=== PATIENT | male | born 1995 | race Caucasian/White ===

== ENCOUNTER 2017-06-09 08:06 | Emergency (ER) | payer MEDICAID, OTHER ==
[2017-06-09 08:20] VITALS: BP 140/69
[2017-06-09 08:34] LABS: MUDS CUTOFF CONCENTRATIONS CUTOFF CONC BELOW:
[2017-06-09 08:45] LABS: BILIRUBIN,URINE NEGATIVE (NEGATIVE); GLUCOSE, URINE (UA) NEGATIVE (NEGATIVE); KETONES,URINE (UA) NEGATIVE (NEGATIVE); LEUKOCYTE ESTERASE, URINE NEGATIVE (NEGATIVE); NITRITE,URINE NEGATIVE (NEGATIVE); OCCULT BLOOD,URINE NEGATIVE (NEGATIVE); PROTEIN,URINE NEGATIVE (NEGATIVE); UROBILINOGEN,URINE 0.2 (NORMAL) E.U./dL (NORMAL)
--- NOTE | 2017-06-09 08:45 | ED Physician Documentation ---
History of Present Illness - Stated complaint Stated Complaint: MHE - Chief complaint Chief Complaint: MHE - Additonal information Additional information: hx from pt 22 male long hx of depression and anxiety hx admission to [place] (which he did not think was helpful) recently quit his job in [employer] and moved to a new job on [employer] and is staying with his grandpa to ER today with his father and GF who are supportive CC depression and suicidal thought no suicidal plan has not yet harmed himself no homicidal ideations does have auditory (distant voices and work noises not commands) and visual ( people at the periph of his vision) hallucinations no fever cough NVD has had congestion has a local PMD, takes adderall Review of Systems Constitutional: denies: Fever, Chills Nose: reports: Congestion Respiratory: denies: Cough GI: denies: Vomiting, Diarrhea Psychiatric: reports: Depressed, Suicidal, Hallucinations, Anxiety. denies: Homicidal, Delusions PD PAST MEDICAL HISTORY - Past Medical History Psych: ADD/ADHD - Past Surgical History Past Surgical History: Yes - Present Medications Home Medications: Ambulatory Orders Medication Instructions Recorded Confirmed Dextroamphetamine/Amphetamine 20 mg PO TID 06/09/17 [Adderall 20 mg Tablet] - Allergies Allergies/Adverse Reactions: Allergies Allergy/AdvReac Type Severity Reaction Status Date / Time No Known Drug Allergies Allergy Verified 06/09/17 08:13 - Social History Does the pt smoke?: No Smoking Status: Never smoker Does the pt drink ETOH?: No Does the pt have substance abuse?: No - Immunizations Immunizations are current?: No - POLST Patient has POLST: No PD ED PE NORMAL - Vitals Vital signs reviewed: Yes - General General: Alert and oriented X 3 - HEENT HEENT: PERRL - Neck Neck: Supple, no meningeal sign - Cardiac Cardiac: RRR - Respiratory Respiratory: No respiratory distress, Clear bilaterally - Abdomen Abdomen: Soft, Non tender - Derm Derm: Normal color - Neuro Neuro: Alert and oriented X 3 Eye Opening: Spontaneous Motor: Obeys Commands Verbal: Oriented GCS Score: 15 - Psych Psych: Other (depressed anxious suicidal ideations s plan, no homicidal ideations, auditory and visual hallucinations, no delusions) Results - Vitals Vitals: Vital Signs - 24 hr 06/09/17 08:09 Temperature 37.1 C Heart Rate 96 Respiratory 18 Rate Blood Pressure 140/69 H O2 Saturation 98 Oxygen O2 Source Room air - Labs Labs: Laboratory Tests 06/09/17 06/09/17 06/09/17 08:25 08:39 08:39 WBC 5.3 RBC 5.05 Hgb 15.1 Hct 44.1 MCV 87.3 MCH 29.8 MCHC 34.2 RDW 12.6 Plt Count 203 MPV 8.5 Neut # 3.0 Lymph # 1.8 [place] # 0.4 Eos # 0.1 Baso # 0.0 Absolute Nucleated RBC 0.00 Nucleated RBC % 0.0 Sodium 140 Potassium 3.8 Chloride 104 Carbon Dioxide 28 Anion Gap 8.0 BUN 11 Creatinine 0.7 Estimated GFR (MDRD) 141 Glucose 89 Calcium 9.0 Total Bilirubin 0.5 AST 17 ALT 18 Alkaline Phosphatase 66 Total Protein 7.0 Albumin 4.4 Globulin 2.6 Albumin/Globulin Ratio 1.7 Lipase 18 L Urine Color YELLOW Urine Clarity CLEAR Urine pH 6.0 Ur Specific [place] 1.025 Urine Protein NEGATIVE Urine Glucose (UA) NEGATIVE Urine Ketones NEGATIVE Urine Occult Blood NEGATIVE Urine Nitrite NEGATIVE Urine Bilirubin NEGATIVE Urine Urobilinogen 0.2 (NORMAL) Ur Leukocyte Esterase NEGATIVE Ur Microscopic Review NOT INDICATED Urine Culture Comments NOT INDICATED Salicylates < 6.0 Urine Opiates Screen NEGATIVE Ur Oxycodone Screen NEGATIVE Urine Methadone Screen NEGATIVE Ur Propoxyphene Screen NEGATIVE Acetaminophen < 10 L Ur Barbiturates Screen NEGATIVE Ur Tricyclics Screen NEGATIVE Ur Phencyclidine Scrn NEGATIVE Ur Amphetamine Screen POSITIVE H U Methamphetamines Scrn NEGATIVE U Benzodiazepines Scrn NEGATIVE Urine Cocaine Screen NEGATIVE U Cannabinoids Screen POSITIVE H Ethyl Alcohol < 5.0 PD MEDICAL DECISION MAKING - ED course ED course: 805 pt arrived 825 pt seen by me 920 medically clear 910 SW consulted 1010 awaiting SW, pt updated 1030 SW to ER to [place] pt 1130 SW reports she feels pt safe for dc, has next day check scheduled as well as an urgent fup appt at Sunday and will be at home with responsible family members I went to speak to pt and he is comfortable with this plan Departure - Departure Disposition: 01 Home, Self Care Clinical Impression: Anxiety Depression Qualifiers: Depression Type: unspecified Qualified Code(s): F32.9 - Major depressive disorder, single episode, unspecified Condition: Good Instructions: ED Depression Follow-Up: [facility] [Provider Group] Comments: The certified social workers in health care has arranged for you to have a recheck by phone tomorrow at 10 AM as well as an urgent follow up appointment on Sunday Stay with a responsible family member Return to the ER if worse You can always call the crisis line as well which the certified social workers in health care gave you the number for Forms: Activity restrictions
[2017-06-09 08:50] LABS: CLARITY,URINE CLEAR (CLEAR)
[2017-06-09 08:52] LABS: BASOPHILS % (AUTO) 0.3 %; EOSINOPHILS # (AUTO) 0.1 10^3/uL (0.0-0.7); EOSINOPHILS % (AUTO) 2.7 %; HGB - HEMOGLOBIN 15.1 g/dL (14.0-18.0); LYMPHOCYTES # (AUTO) 1.8 10^3/uL (1.5-3.5); LYMPHOCYTES % (AUTO) 33.1 %; MEAN CORPUSCULAR HEMOGLOBIN 29.8 pg (27.0-31.0); MEAN CORPUSCULAR HGB CONC 34.2 g/dL (32.0-36.0); MEAN CORPUSCULAR VOLUME 87.3 fL (80.0-94.0); MEAN PLATELET VOLUME 8.5 fL (7.4-11.4); MONOCYTES # (AUTO) 0.4 10^3/uL (0.0-1.0); MONOCYTES % (AUTO) 7.1 %; NEUTROPHILS % (AUTO) 56.8 %; PLT - PLATELET COUNT 203 10^3/uL (130-450); RED BLOOD COUNT 5.05 10^6/uL (4.70-6.10); RED CELL DISTRIBUTION WIDTH 12.6 % (12.0-15.0); WHITE BLOOD COUNT 5.3 x10^3/uL (4.8-10.8)
[2017-06-09 08:57] LABS: AMPHETAMINE SCREEN,URINE POSITIVE (NEGATIVE); BENZODIAZEPINES SCREEN, URINE NEGATIVE (NEGATIVE); COCAINE SCREEN URINE NEGATIVE (NEGATIVE); METHADONE SCREEN, URINE NEGATIVE (NEGATIVE); METHAMPHETAMINES SCREEN, URINE NEGATIVE (NEGATIVE); OPIATE SCREEN, URINE NEGATIVE (NEGATIVE); OXYCODONE SCREEN, URINE NEGATIVE (NEGATIVE); PROPOXYPHENE SCREEN, URINE NEGATIVE (NEGATIVE); TRICYCLIC ANTIDEPRESSANT,URINE NEGATIVE (NEGATIVE)
[2017-06-09 09:05] LABS: ALBUMIN 4.4 g/dL (3.2-5.5); ALBUMIN/GLOBULIN RATIO 1.7 (1.0-2.2); ALKALINE PHOSPHATASE 66 IU/L (42-121); ALT ALANINE AMINOTRANSFERASE 18 IU/L (10-60); AST ASPARTATE AMINOTRANSFERASE 17 IU/L (10-42); BILIRUBIN,TOTAL 0.5 mg/dL (0.2-1.0); BUN - BLOOD UREA NITROGEN 11 mg/dL (6-20); CARBON DIOXIDE - CO2 28 mmol/L (21-32); CHLORIDE 104 mmol/L (101-111); CREATININE 0.7 mg/dL (0.6-1.2); GFR - MDRD 141 (>89); GLUCOSE 89 mg/dL (70-100); LIPASE 18 U/L (22-51); SALICYLATE < 6.0 mg/dL; SODIUM 140 mmol/L (135-145)
[2017-06-09 09:08] LABS: ACETAMINOPHEN < 10 ug/mL (10-30)
== END 2017-06-09 12:52 | disposition home or self-care (01) ==
LOC: ED 08:06
DX: F41.9 Anxiety disorder, unspecified (principal); F32.9 Major depressive disorder, single episode, unspecified
CPT/HCPCS: 36415; 80053; 80306; 80307; 80320; 80329; 81001; 81003; 83690; 85025; 87086; 99283; 99284

== ENCOUNTER 2018-02-01 23:33 | Outpatient (CLI) | payer MEDICAID | END 2018-02-01 23:34 | disposition critical access hospital (66) | LOC: EMS 23:33 | PROVIDERS: ATTEND Surgery | DX: R09.89 Other specified symptoms and signs involving the circulatory and respiratory systems (principal) | CPT/HCPCS: A0425; A0429; A0999 ==

== ENCOUNTER 2018-02-02 00:36 | Emergency (ER) | payer MEDICAID ==
--- NOTE | 2018-02-02 01:25 | ED Physician Documentation ---
PD HPI MHE - Stated complaint Stated Complaint: PANIC ATTACK - Chief complaint Chief Complaint: General - History obtained from History obtained from: Patient - History of Present Illness Primary symptom: Anxiety Timing - onset: Enter time (22:00) Pain level max: 0 Pain level now: 0 Recently seen: Not recently seen - Additional information Additional information: patient complains of sudden onset of generalizing [place], dyspnea, pounding palpitations. Symptoms started at 10 PM tonight. Symptoms have improved significantly while waiting evaluation. he stopped his risperidone yesterday. Patient says he contacted his physicians office and inform them of this and that his doctor told him he could stop the risperidone, but that he should taper it. Patient did not taper the medication. Patient said he stopped the risperidone because he read the side effect list and this concerned him enough to stop the medication without being instructed to do so. he also says he is having occasional visual hallucinations that started today, but these are not di sturbing or distressing to him. Review of Systems Neurologic: reports: Reviewed and negative Psychiatric: reports: Hallucinations, Anxiety, Insomnia. denies: Depressed, Suicidal, Homicidal, Delusions PD PAST MEDICAL HISTORY - Past Medical History Past Medical History: Yes Cardiovascular: Other Respiratory: None Neuro: None Endocrine/Autoimmune: None GI: None : None HEENT: None Psych: Depression, Anxiety, ADD/ADHD Musculoskeletal: None Derm: None - Past Surgical History Past Surgical History: Yes General: Other - Present Medications Home Medications: Ambulatory Orders Medication Instructions Recorded Confirmed Dextroamphetamine/Amphetamine 30 mg PO TID 06/09/17 02/02/18 [Adderall 20 mg Tablet] ALPRAZolam [Alprazolam] 1 mg PO TID PRN #20 tablet 02/02/18 Bupropion HCl [Bupropion Xl] 600 mg PO DAILY 02/02/18 02/02/18 Clonidine HCl [Clonidine HCl ER] 0.2 mg PO BID 02/02/18 02/02/18 Gabapentin 300 mg PO TID 02/02/18 02/02/18 Lamotrigine [Lamotrigine ER] 100 mg PO DAILY 02/02/18 02/02/18 Rico Carbonate 600 mg PO DAILY 02/02/18 02/02/18 Risperidone [Risperdal] 1 mg PO DAILY 02/02/18 02/02/18 hydrOXYzine HCl [Hydroxyzine HCl] 25 mg PO Q6HR PRN 02/02/18 02/02/18 metFORMIN [Glucophage] 500 mg PO BID 02/02/18 02/02/18 - Allergies Allergies/Adverse Reactions: Allergies Allergy/AdvReac Type Severity Reaction Status Date / Time No Known Drug Allergies Allergy Verified 02/02/18 00:49 - Social History Does the pt smoke?: No Smoking Status: Never smoker Does the pt drink ETOH?: No Does the pt have substance abuse?: No - Immunizations Immunizations are current?: No - POLST Patient has POLST: No PD ED PE NORMAL - Vitals Vital signs reviewed: Yes - General General: Alert and oriented X 3, No acute distress, Well developed/nourished - Cardiac Cardiac: RRR, No murmur - Respiratory Respiratory: No respiratory distress - Neuro Neuro: Alert and oriented X 3, learning support resource room teacher 2-12 intact, Normal speech Eye Opening: Spontaneous Motor: Obeys Commands Verbal: Oriented GCS Score: 15 - Psych Psych: Normal mood, Normal affect Results - Vitals Vitals: Vital Signs - 24 hr 02/02/18 02/02/18 02/02/18 00:39 01:02 01:34 Temperature 36.4 C L Heart Rate 79 95 Respiratory 17 17 17 Rate Blood Pressure 136/83 H O2 Saturation 100 99 02/02/18 02/02/18 02/02/18 02:08 02:45 03:14 Temperature Heart Rate 85 Respiratory 16 17 17 Rate Blood Pressure 132/82 H O2 Saturation 97 97 02/02/18 04:12 Temperature Heart Rate Respiratory 16 Rate Blood Pressure O2 Saturation 97 Oxygen O2 Source Room air PD MEDICAL DECISION MAKING - ED course Complexity details: reviewed old records, re-evaluated patient, considered differential, d/w patient ED course: patient presents for symptoms that are consistent with anxiety and panic attack. He does endorse occasional visual hallucinations but started earlier today, but tells me specifically that these are not troubling him. He says he has an appointment with his doctor at the beginning of the coming week, which is in a few days. He strongly denies suicidal or homicidal thoughts, and appears to be in no apparent distress and is alert, awake, and oriented x 3 in the emergency department. We discussed options and I offered a Tele psych consult. I offered a social work consult. I offered Xanax as a short term treatment for his symptoms until his upcoming follow-up appointment. After further discussion of these options, patient strongly prefers to have the Xanax now and has a prescription, will return if worst, and will follow up as scheduled in a few days. Departure - Departure Disposition: 01 Home, Self Care Clinical Impression: Anxiety Condition: Good Instructions: ED Panic Attack Prescriptions: ALPRAZolam [Alprazolam] 1 mg PO TID PRN #20 tablet PRN Reason: Anxiety Comments: You need to follow up with your doctor, next available appointment. Alprazolam is only meant to be used for short-term use on an "as needed" basis (no more than three times per day). Discharge Date/Time: 02/02/18 04:14
[2018-02-02] MEDS ORDERED: ALPRAZolam 0.25 MG TABLET PO STA ×2 (01:54→03:35)
[2018-02-02 02:09] VITALS: BP 132/82
== END 2018-02-02 04:14 | disposition home or self-care (01) ==
LOC: EDUNIT# → ED 00:36
DX: F41.9 Anxiety disorder, unspecified (principal)
CPT/HCPCS: 99283; A9270

== ENCOUNTER 2018-02-08 23:59 | Outpatient (CLI) | payer MEDICAID | END 2018-02-09 | disposition critical access hospital (66) | LOC: EMS 23:59 | PROVIDERS: ATTEND Surgery | DX: F41.9 Anxiety disorder, unspecified (principal); R41.0 Disorientation, unspecified; R20.0 Anesthesia of skin | CPT/HCPCS: A0425; A0429; A0999 ==